=== PATIENT | female | born 1970 | race Caucasian/White ===

== ENCOUNTER → 2020-11-11 | Outpatient (CLI) | payer OTHER ==
[~2020-11-11] MED LIST: CARAFATE 1 GM TA1 G1 PO; CLONAZEPAM 1 MG1 M1 PO; NOHOMEMEDICATIONS; PANTOPRAZOLE SO40 M1 PO; ZOFRAN ODT4 MG PO
== END ==
LOC: ULTRA 15:57
PROVIDERS: ATTEND Nurse Practitioner
DX: K80.80 Other cholelithiasis without obstruction (principal); R11.2 Nausea with vomiting, unspecified; R10.84 Generalized abdominal pain

== ENCOUNTER 2020-11-12 05:18 | Emergency (ER) | payer OTHER ==
[~2020-11-12] VITALS: Ht 165.1 cm; Wt 59.4 kg
[~2020-11-12 05:18] MED LIST changes: -ZOFRAN ODT4 MG PO
[2020-11-12 05:52] LABS: ABSOLUTE NEUTROPHILS 3.8 thou/uL (1.4-8.2); BASOPHILS 0.4 % (0.0-2.0); EOSINOPHILS 3.4 % (0.0-3.0); HEMATOCRIT 44.4 % (37.0-47.0); HEMOGLOBIN 14.6 gm/dL (12.0-15.0); LYMPHOCYTES 23.9 % (24.0-44.0); MCH 31.5 pg (26.0-34.0); MCHC 32.9 g/dL (28.0-37.0); MCV 95.5 fL (80.0-100.0); MONOCYTES 6.8 % (1.0-8.0); PLATELET COUNT 232 thou/uL (150-400); POLYS 65.5 % (36.0-66.0); RBC 4.65 mil/uL (4.20-5.00); RDW 13.6 % (10.5-14.5); WBC 5.8 thou/uL (4.0-11.0)
[2020-11-12 05:58] LABS: URINE BILIRUBIN NEGATIVE (Negative); URINE BLOOD NEGATIVE (Negative); URINE CLARITY CLOUDY; URINE COLOR YELLOW; URINE GLUCOSE-RANDOM* NEGATIVE (Negative); URINE KETONES TRACE (Negative); URINE NITRITE-REFLEX NEGATIVE (Negative); URINE PROTEIN (DIPSTICK) NEGATIVE (Negative)
[2020-11-12 06:02] LABS: URINE LEUKOCYTES-REFLEX 1+ (Negative)
[2020-11-12 06:04] LABS: CALCIUM 9.6 mg/dL (8.5-10.1); CREATININE 0.9 mg/dL (0.6-1.0); POTASSIUM 3.7 mmol/L (3.5-5.1)
[2020-11-12 06:10] LABS: ALBUMIN 3.4 g/dL (3.4-5.0); TOTAL BILIRUBIN 0.3 mg/dL (0.2-1.0); TOTAL PROTEIN 6.7 g/dL (6.4-8.2)
[2020-11-12] MEDS ORDERED: ZOFRAN ODT4 MG PO (06:41)
[2020-11-12 06:44] LABS: CASTS None Seen /LPF (None Seen); MUCUS >6 Heavy strn/LPF (None Seen); SQUAMOUS 4-10 Moderate /LPF (0-3)
[2020-11-12 06:45] LABS: AMORPHOUS PHOSPHATES Few /LPF (None Seen); URINE RBC None Seen /HPF (NONE SEEN); URINE WBC-REFLEX 0-5 Rare /HPF (0-5)
[2020-11-12 07:56] VITALS: BP 83/51
--- NOTE | 2020-11-12 09:19 | EKG ---
[address] [place] [address] ELECTROCARDIOGRAM REPORT Name: ABDULKADIR BUTCHER Room #: DEP [facility]ADominga#: [id number] Admission: 11/12/20 Attend Phys: Discharge: 11/12/20 Date of : 72 Report #: [id number] [facility] ED Test Date: 2020-11-12 Test Time: 05:40:31 Pat Name: ABDULKADIR BUTCHER Department: Room: Gender: F Electronic Test Technician: PERRI : 1970 Requested By: Cristofer Ford Order Number: [id number] MD: Hernesto Shaffer Measurements Intervals [place] Rate: 81 P: 71 ME: 138 QRS: 68 QRSD: 103 T: 65 QT: 371 QTc: 431 Interpretive Statements Sinus rhythm No significant abnormality Compared to ECG 05/06/2014 11:54:40 Sinus tachycardia no longer present Electronically Signed On 11-12-2020 9:19:42 CDT by Hernesto Shaffer [email or web address] <ELECTRONICALLY SIGNED> By: Hernesto Shaffer MD, [facility] 11/12/20 0919 0540 0540 Hernesto Shaffer MD, FACC /EPI
== END 2020-11-12 07:58 | disposition home or self-care (01) ==
LOC: ER 05:18
PROVIDERS: Emergency Medicine
DX: K80.20 Calculus of gallbladder without cholecystitis without obstruction (principal); Z79.899 Other long term (current) drug therapy